=== PATIENT | male | born 1985 | race Caucasian/White ===

== ENCOUNTER 2024-01-11 08:52 | Emergency (ER) | payer MEDICARE, MEDICAID ==
[~2024-01-11] VITALS: Ht 188 cm; Wt 135.3 kg
[2024-01-11 08:54] VITALS: TEMP 98.4
[2024-01-11] MEDS: cloNIDine 0.1 mg tablet PO ONE (09:48)
[2024-01-11] MEDS ORDERED: LISI10TA27 PO (10:35)
[2024-01-11 10:43] VITALS: BP 184/110; PULSE 70; RESP 18; O2SAT 99
== END 2024-01-11 10:45 | disposition home or self-care (01) ==
LOC: ER 08:53
DX: I10 Essential (primary) hypertension (principal); Z79.899 Other long term (current) drug therapy
CPT/HCPCS: 99285